=== PATIENT | male | born 1995 | race American Indian/Alaskan Native ===

== ENCOUNTER 2022-01-11 08:17 | Emergency (ER) | payer SELFPAY ==
[2022-01-11 08:28] VITALS: BP 117/67
[2022-01-11] MEDS ORDERED: LIDOCAINE-MPF (1%) 10 MG/1 ML VIAL 5 ML INFILTRATI ONE (09:25)
[2022-01-11] MEDS ORDERED: AZITHROMYCIN 250 MG TAB PO ONE (09:25)
--- NOTE | 2022-01-11 09:36 | Emergency Department Report ---
ED General Adult HPI - General Chief complaint: Urogenital-Male Stated complaint: STD Time Seen by Provider: 01/11/22 09:26 Source: patient Mode of arrival: Ambulatory Limitations: No Limitations - History of Present Illness Initial comments: Is a 26-year-old male who presents for dysuria. States frequency urgency dysuria no hematuria. There is no fevers no chills. No rash no open lesions. Patient does practice unprotected sex. Has history of renal stones. Symptoms exacerbated by voiding. Symptoms relieved by nothing tried. Severity scale (0 -10): 0 - Related Data Previous Rx's Medication Instructions Recorded Last Taken Type Doxycycline Monohydrate 100 mg PO BID 7 Days #14 cap 01/11/22 Unknown Rx Allergies Allergy/AdvReac Type Severity Reaction Status Date / Time No Known Allergies Allergy Unverified 01/11/22 08:25 ED Review of Systems ROS: Stated complaint: STD Other details as noted in HPI Constitutional: denies: chills, fever Eyes: denies: eye pain, eye discharge, vision change ENT: as per HPI Respiratory: denies: cough, shortness of breath, wheezing Cardiovascular: denies: chest pain, palpitations Endocrine: no symptoms reported Gastrointestinal: denies: abdominal pain, nausea, diarrhea Genitourinary: urgency, dysuria, frequency. denies: hematuria, discharge, testicular pain, testicular mass Musculoskeletal: back pain (Mild CVA tenderness left). denies: joint swelling, arthralgia Skin: denies: rash, lesions Neurological: denies: headache, weakness, paresthesias Psychiatric: denies: anxiety, depression Hematological/Lymphatic: denies: easy bleeding, easy bruising ED Past Medical Hx - Past Medical History Previous Medical History?: No - Surgical History Past Surgical History?: No - Medications Home Medications: Home Medications Medication Instructions Recorded Confirmed Last Taken Type Doxycycline Monohydrate 100 mg PO BID 7 Days #14 cap 01/11/22 Unknown Rx ED Physical Exam - General Limitations: No Limitations General appearance: alert, in no apparent distress - Head Head exam: Present: atraumatic, normocephalic - Eye Eye exam: Present: normal appearance - ENT ENT exam: Present: mucous membranes moist - Neck Neck exam: Present: normal inspection - Respiratory Respiratory exam: Present: normal lung sounds bilaterally. Absent: respiratory distress - Cardiovascular Cardiovascular Exam: Present: regular rate, normal rhythm. Absent: systolic murmur, diastolic murmur, rubs, gallop - GI/Abdominal GI/Abdominal exam: Present: soft, normal bowel sounds. Absent: distended, tenderness, guarding, rebound, rigid, bruit, hernia - Rectal Rectal exam: Present: deferred - Extremities Exam Extremities exam: Present: normal inspection, full ROM. Absent: tenderness - Back Exam Back exam: Present: full ROM, CVA tenderness (L). Absent: CVA tenderness (R) - Neurological Exam Neurological exam: Present: alert, oriented X3, CN II-XII intact - Psychiatric Psychiatric exam: Present: normal affect, normal mood - Skin Skin exam: Present: warm, dry, intact, normal color. Absent: rash ED Course Vital Signs 01/11/22 08:27 Temperature 97.8 F Pulse Rate 60 Respiratory 20 Rate Blood Pressure 117/67 [Right] O2 Sat by Pulse 96 Oximetry ED Medical Decision Making - Lab Data Labs 01/11/22 09:20 Urine Color Yellow Urine Turbidity Clear Urine pH 7.0 Ur Specific [place] 1.024 Urine Protein <15 mg/dl Urine Glucose (UA) Neg Urine Ketones Neg Urine Blood Neg Urine Nitrite Neg Urine Bilirubin Neg Urine Urobilinogen 4.0 Ur Leukocyte Esterase Mod Urine WBC (Auto) 58.0 H Urine RBC (Auto) 3.0 Urine Mucus Few - Medical Decision Making UA noted for leukocytes bacteria this is likely STI versus UTI plan treat for STI. Patient will follow-up with health department for HIV and HSV screening. Patient verbalized agreement understanding with same patient DC to home with prescriptions. Patient will follow up primary care doctor in 2 days. Critical care attestation.: If time is entered above; I have spent that time in minutes in the direct care of this critically ill patient, excluding procedure time. ED Disposition Clinical Impression: Dysuria, Exposure to STD Disposition: HOME / SELF CARE / HOMELESS Is pt being admited?: No Does the pt Need Aspirin: No Condition: Stable Instructions: Safe Sex Additional Instructions: Take medication as prescribed, follow-up with your doctor in 2 to 3 days. Follow-up with health department for HSV and HIV screening. Return to emergency department should symptoms worsen. Prescriptions: Doxycycline Monohydrate 100 mg PO BID 7 Days #14 cap Referrals: [facility] Depart [Outside] - 3-5 Days Forms: Work/School Release Form(ED) Time of Disposition: 09:59
[2022-01-11 09:45] LABS: Bilirubin,Urine NEG (Negative); Blood,Urine NEG (Negative); Color,Urine Yellow (Yellow); Mucus,Urine FEW /HPF; Protein,Urine <15 mg/dL mg/dL (Negative)
== END 2022-01-11 10:42 | disposition home or self-care (01) ==
LOC: ED 08:17
DX: R30.0 Dysuria (principal); Z20.2 Contact with and (suspected) exposure to infections with a predominantly sexual mode of transmission
CPT/HCPCS: 81001; 87086; 96372; 99283; J0696; J3490